=== PATIENT | male | born 1945 | race African-American/Black ===

== ENCOUNTER 2019-09-18 20:17 | Observation (INO) | payer MEDICARE, OTHER ==
[2019-09-18] MEDS ORDERED: Dexamethasone 10 MG/ML VIAL ONE (20:42)
[2019-09-18] MEDS ORDERED: Azithromycin 500 MG VIAL ONE (20:42)
[2019-09-18 21:52] LABS: CKMB 1.7 ng/mL (0-6.6)
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
[2019-09-18 23:09] VITALS: BMI 26.4
[2019-09-18] MEDS ORDERED: Ondansetron ODT 4 MG TAB PO PRN (23:39)
[2019-09-18] MEDS ORDERED: Acetaminophen 500 MG TAB PO PRN (23:39)
[2019-09-18] MEDS ORDERED: Calcium Carbonate 500 MG ChewTAB PO PRN (23:39)
[2019-09-18 23:40] LABS: PTT 33.3 sec (22.9-36.1); Prothrombin Time 12.7 sec (12.0-14.7)
[2019-09-18] MEDS ORDERED: Prevnar 13-Val Conj/PF 0.5 ML SYRINGE IM ONE (23:45)
[2019-09-18] MEDS ORDERED: hydrALAZINE 20 MG/ML VIAL SLOW IVP PRN (23:47)
[2019-09-18 23:58] LABS: Troponin I 0.037 ng/mL (< 0.028)
[2019-09-19 00:04] LABS: Hemoglobin 13.1 g/dL (14.0-18.0); Mean Corpuscular Hemoglobin 29.3 pg (27.0-31.0); Mean Corpuscular Volume 83.7 fL (78.0-98.0); Mean Platelet Volume 9.1 fL (7.4-10.4); Platelet Count 84 thou/uL (130-400); RBC Distribution Width 12.9 % (11.5-14.5); Red Blood Cell (RBC) Count 4.47 mill/uL (4.70-6.10); White Blood Cell (WBC) Count 4.9 thou/uL (4.8-10.8)
[2019-09-19 00:05] LABS: Band 11 % (5-11); Lymphocytes 21 % (21-51); MDiff Complete? YES; Monocytes 3 % (0-10); Neutrophil 65 % (42-75); Platelet Morphology Comment Appears Decreased
[2019-09-19 02:37] LABS: #Basophils 0.1 thou/uL (0.0-0.2); #Lymphocytes 1.2 thou/uL (1.20-3.40); #Monocytes 0.1 thou/uL (0.11-0.59); %Lymphocytes 27.2 % (21.0-51.0); %Monocytes 2.7 % (0.0-10.0); %Neutrophils 68.2 % (42.0-75.0); Hemoglobin 12.8 g/dL (14.0-18.0); Mean Corpuscular Hemoglobin 28.4 pg (27.0-31.0); Mean Corpuscular Volume 83.5 fL (78.0-98.0); Mean Platelet Volume 8.7 fL (7.4-10.4); Platelet Count 85 thou/uL (130-400); White Blood Cell (WBC) Count 4.4 thou/uL (4.8-10.8)
[2019-09-19 03:13] LABS: ALT (SGPT) 21 U/L (8-55); AST (SGOT) 28 U/L (5-34); Albumin 3.7 g/dL (3.4-4.8); Alkaline Phosphatase 38 U/L (40-110); Anion Gap 13 mmol/L (10-20); BUN (Urea Nitrogen) 12 mg/dL (8.4-25.7); Bilirubin, Total 0.4 mg/dL (0.2-1.2); Calc. Creatinine Clearance 64 mL/min (70-130); Calcium 8.2 mg/dL (7.8-10.44); Carbon Dioxide 22 mmol/L (23-31); Chloride 104 mmol/L (98-107); Estimated GFR-MDRD 82; Globulin 3.4 g/dL (2.4-3.5); Glucose 126 mg/dL (83-110); Potassium 3.9 mmol/L (3.5-5.1); Protein, Total 7.1 g/dL (5.8-8.1); Sodium 135 mmol/L (136-145)
--- NOTE | 2019-09-19 08:59 | PDOC.FM ---
- Subjective Subjective: Patient doing well this morning. Denies any complaints including SOB, cough, CP ,N/V. Has not required oxygen supplementation. - Objective MAR Reviewed: Yes Vital Signs & Weight: Vital Signs (12 hours) Temp Pulse Resp BP Pulse Ox 09/19/19 04:00 98.0 F 72 18 121/72 98 09/18/19 22:30 99.1 F 78 20 141/79 H 98 Weight Weight 76.702 kg Result Diagrams: 09/19/19 02:27 09/19/19 02:27 Phys Exam - Physical Examination Constitutional: NAD HEENT: moist MMs, sclera anicteric Neck: no JVD, supple, full ROM Respiratory: no wheezing, clear to auscultation bilateral Cardiovascular: RRR, no significant murmur Gastrointestinal: soft, positive bowel sounds Musculoskeletal: no edema, pulses present Neurological: normal sensation, moves all 4 limbs Psychiatric: normal affect Skin: no rash, normal turgor Dx/Plan (1) Elevated troponin Code(s): R79.89 - OTHER SPECIFIED ABNORMAL FINDINGS OF BLOOD CHEMISTRY Status : Acute (2) Pneumonia due to COVID-19 virus Code(s): U07.1 - COVID-19; J12.89 - OTHER VIRAL PNEUMONIA Status: Acute (3) Thrombocytopenia associated with COVID-19 Code(s): U07.1 - COVID-19; D69.59 - OTHER SECONDARY THROMBOCYTOPENIA Status: Acute (4) Hypertension Code(s): I10 - ESSENTIAL (PRIMARY) HYPERTENSION Status: Chronic Qualifiers: Hypertension type: essential hypertension Qualified Code(s): I10 - Essential (primary) hypertension - Plan Plan: 74YOM with a PMH notable for HTN who was transferred from [place] for admission for COVID-19 PNA. #COVID-19 PNA: - Patient tested + for COVID-19 on 09/13 in [place] ER with CXR findings read as B/L PNA done in ER today. Stable on RA w/ NL WBC & procal. - Given azithromycin & dexamethasone in the ER & due to transfer recommended admission for close monitoring. - Patient remains stable on RA & reports SOB has resolved since presentation. - PRN tylenol for pain/fever - No need to continue abx at this time as procal & WBC were WNLs. - standard COVID-19 isolation precautions #Thrombocytopenia - Plts 85 on presentation - Suspect 2/2 COVID 19 - Will continue to trend & give lovenox as permitted for VTE PPX. #Elevated troponin I level - suspect d/t demand ischemia - Trop initially 0.019 > 0.031 > 0.037 > 0.018 - EKG was NSR & patient not complaining of any chest pain #HTN - Patient does not know home med. - Will call BB in [place] in AM to rec home meds this morning - PRN hydralazine overnight. PCP: [facility]- Dr. Gutierrez, CONCRETE VIBRATOR OPERATOR VTE PPX: Lovenox GI PPX: none IVFs: SL CODE STATUS: FULL CODE Dispo: Stable, admitted to obs on telemetry for continued monitoring & supportive care PRN. Possible d/c home later today pending clinical course. Addendum - Attending - Attending Attestation Date/Time: 09/19/19 1200 I personally evaluated the patient and discussed the management with Dr. Saucedo. I agree with the History, Examination, Assessment and Plan documented above with any addition or exceptions noted below. Patient doing well. He has remained with normal oxygen status overnight and has not required supplemental O2. He is stable for discharge with outpatient follow up.
[2019-09-19] MEDS ORDERED: Enoxaparin Sodium 40 MG/0.4 ML SYRINGE SC SCH (09:00)
[2019-09-19 14:50] VITALS: BP 120/80; TEMP 98.8
--- NOTE | 2019-09-20 11:36 | DIS ---
DATE OF ADMISSION: 09/18/2019 DATE OF DISCHARGE: 09/19/2019 PRIMARY CARE PHYSICIAN: Dr. Gutierrez. RESIDENT: Tamara Saucedo DO ADMITTING ATTENDING: Rishabh Mcnair MD DISCHARGE ATTENDING: Conrad Silva MD CONSULTS: None. PROCEDURES: Chest x-ray on September 18, 2019: Bilateral lower lobe pneumonia. Stable cardiomegaly without evidence of cardiac decompensation. PRIMARY DIAGNOSIS: COVID-19 positive pneumonia. SECONDARY DIAGNOSES: 1. Thrombocytopenia. 2. Elevated troponin secondary to demand ischemia. 3. Hypertension. DISCHARGE MEDICATIONS: None. DISCONTINUED MEDICATIONS: None. HISTORY OF PRESENT ILLNESS/HOSPITAL COURSE: The patient is a 74-year-old male, who presented to [facility] Emergency Department on September 18, 2019 as a transfer from [facility] after being diagnosed with COVID-19 pneumonia earlier in the evening at that facility. The patient says his symptoms began on Tuesday, September 10, but he waited until September 13 before presenting to the ER for COVID testing, at that time, which came back positive. The patient's symptoms included fatigue, cough, myalgias, fever, and chills. The patient denied any chest pain, congestion, or sore throat. In the Emergency Department, the patient was given 10 mg of IV dexamethasone and 500 mg of IV azithromycin. The patient was admitted to the medical floor for observation. The patient did well throughout his admission and remained stable on room air, never required supplemental oxygen. The patient's shortness of breath had resolved by his arrival at the floor. Of note, the patient's platelets were noted to be 85, this is suspected to be secondary to COVID-19 complication. The patient's initial troponin trended up from 0.019 to 0.031 on repeat. Continued trend was downward to 0.018. Troponin trend was thought to be due to demand ischemia. On the morning of September 19, 2019, the patient was deemed stable back to discharge home. He was instructed to follow up with his PCP Dr. Gutierrez at [facility] in 3 to 5 days. The patient has a home med for hypertension, but this was never able to be clarified. He was instructed to resume any home medications. DISPOSITION: Stable. DISCHARGE INSTRUCTIONS: 1. Location: Home. 2. Diet: Heart healthy. 3. Activity: As tolerated. 4. Follow up with Dr. Gutierrez at [facility] in 3 to 5 days. Job ID: [id number]
== END 2019-09-19 16:15 | disposition home or self-care (01) ==
LOC: ERS 20:17 → 2SW 21:32 → INTOOBSV 21:32
PROVIDERS: ADMIT Family Medicine; ATTEND Family Medicine
DX: U07.1 COVID-19 (principal); J12.89 Other viral pneumonia; D69.59 Other secondary thrombocytopenia; I10 Essential (primary) hypertension; I24.8 Other forms of acute ischemic heart disease; Z79.899 Other long term (current) drug therapy
CPT/HCPCS: 80053; 82553; 82728; 83615; 84145; 84484 ×2; 85007; 85025; 85027; 85379; 85384; 85610; 85730; 86140; 90670; 93005; 96365; 96375; 99285; G0009; G0378; 36415; 85060; 90471; J0456; J1100